=== PATIENT | male | born 1950 | race Caucasian/White ===

== ENCOUNTER 2016-06-18 05:22 | Emergency (ER) | payer OTHER ==
[~2016-06-18] VITALS: Ht 182.9 cm; Wt 75.0 kg
[2016-06-18 05:27] VITALS: Ht 182.9 cm; Wt 75.0 kg
--- NOTE | 2016-06-18 05:37 | ERA ---
ER Documentation Chief Complaint Date/Time DATE: 06/18/16 TIME: 05:36 Chief Complaint psychotic episode, violent to furniture in house, hearing voices (KENY DAMON) HPI Psychotic episode. Patient said his balance prior to his house is hearing voices telling him to hurt himself or hurt others. Patient has history of previous psychiatric disorder. (KENY DAMON) ROS All systems reviewed and are negative except as per history of present illness. (KENY DAMON) Medications Home Meds No Active Prescriptions or Reported Meds Allergies Allergies: Coded Allergies: acetaminophen (Verified Allergy, Mild, RASH,ITCHINESS, 01/16/16) hydrocodone (Verified Allergy, Mild, RASH,ITCHINESS, 01/16/16) PMhx/Soc History of Surgery: Yes (hernia repair) Anesthesia Reaction: No Hx Neurological Disorder: No Hx Respiratory Disorders: No Hx Cardiac Disorders: No Hx Psychiatric Problems: No Hx Miscellaneous Medical Probl: No Hx Alcohol Use: No Hx Substance Use: No Hx Tobacco Use: No (KENY DAMON) Physical Exam Vitals Vital Signs Date Time Temp Pulse Resp B/P Pulse Ox O2 Delivery O2 Flow Rate FiO2 06/18/16 05:27 96.9 100 20 111/69 98 (ALBINA BARRAZA DO) Physical Exam Const: [] Head: Atraumatic Eyes: Normal Conjunctiva ENT: Normal External Ears, Nose and Mouth. Neck: Full range of motion..~ No meningismus. Resp: Clear to auscultation bilaterally Cardio: Regular rate and rhythm, no murmurs Abd: Soft, non tender, non distended. Normal bowel sounds Skin: No petechiae or rashes Back: No midline or flank tenderness Ext: No cyanosis, or edema Neur: Awake and alert Psych: Normal Mood and Affect (KENY DAMON) Result Diagram: 06/18/16 0715 06/18/16 0557 Results 24 hrs Laboratory Tests Test 06/18/16 05:57 06/18/16 07:15 Acetaminophen Level < 10.0ug/ml Alanine Aminotransferase (ALT/SGPT) 43IU/L Albumin 3.8g/dl Albumin/Globulin Ratio 1.05 Alkaline Phosphatase 390IU/L Anion Gap 18 Aspartate Amino Transf (AST/SGOT) 177IU/L Basophils # 0.010^3/ul Basophils % 0.5% Blood Morphology Comment Blood Urea Nitrogen 19mg/dl Calcium Level 9.1mg/dl Carbon Dioxide Level 24mmol/L Chloride Level 103mmol/L Creatinine 0.82mg/dl Differential Comment AUTO w/SCAN Direct Bilirubin 0.00mg/dl Eosinophils # 0.010^3/ul Eosinophils % 0.5% Ethyl Alcohol Level < 10.0mg/dl Globulin 3.60g/dl Glucose Level 74mg/dl Hematocrit 20.4% 32.4% Hemoglobin 6.6g/dl 10.6g/dl Indirect Bilirubin 0.3mg/dl Lymphocytes # 2.510^3/ul Lymphocytes % 26.7% Mean Corpuscular Hemoglobin 31.4pg Mean Corpuscular Hemoglobin Concent 32.5g/dl Mean Corpuscular Volume 96.7fl Mean Platelet Volume 7.2fl Monocytes # 1.110^3/ul Monocytes % 12.4% Neutrophils # 5.510^3/ul Neutrophils % 59.9% Nucleated Red Blood Cells # 0.610^3/ul Nucleated Red Blood Cells % 6.5/100WBC Platelet Count 17188^3/UL Potassium Level 4.5mmol/L Red Blood Count 2.1110^6/ul Red Cell Distribution Width 24.0% Salicylates Level < 1.0mg/dl Sodium Level 140mmol/L Total Bilirubin 0.3mg/dl Total Protein 7.4g/dl White Blood Count 9.310^3/ul (ALBINA BARRAZA DO) Procedures/MDM Patient's behavioral symptoms have stabilized while in the department. Patient is medically cleared and appropriate for psychiatric evaluation and work up. No e/o neurologic, toxic, infectious, or metabolic cause. Pending U placement (KENY DAMON) Discussed with the patient a history. The patient says he is not hearing voices he is not homicidal is not suicidal. He says that there is a lot of chaos going on in the house and he wanted to get away from it all and he was very argumentative environment. Patient's lab work is unremarkable. He is calm and cooperative. He was seen by the tele-psych doctor. I discussed with psych and he told him the same history as me. Both feel he is not a threat to self or others and will discharged home (ALBINA BARRAZA DO) Departure Diagnosis: Primary Impression: Psychological disorder Condition: Stable KENY DAMON Jun 18, 2016 05:37 ALBINA BARRAZA DO Jun 18, 2016 08:59
[2016-06-18 06:25] LABS: BASOPHILS % 0.5 % (0.0-2.0); EOSINOPHILS % 0.5 % (0.0-7.0); HEMATOCRIT 20.4 % (42.0-52.0); LYMPHOCYTES # 2.5 10^3/ul (0.8-2.9); LYMPHOCYTES % 26.7 % (15.0-51.0); MEAN CORPUSCULAR HEMOGLOBIN 31.4 pg (29.0-33.0); MEAN CORPUSCULAR HGB CONC 32.5 g/dl (32.0-37.0); MEAN CORPUSCULAR VOLUME 96.7 fl (82.0-101.0); MEAN PLATELET VOLUME 7.2 fl (7.4-10.4); MONOCYTE # 1.1 10^3/ul (0.3-0.9); MONOCYTES % 12.4 % (0.0-11.0); NEUTROPHIL # 5.5 10^3/ul (1.6-7.5); NEUTROPHILS % 59.9 % (39.0-77.0); NUCLEATED RED BLOOD CELLS% 6.5 /100WBC (0.0-0.0); PLATELET COUNT 156 10^3/UL (140-440); RED BLOOD COUNT 2.11 10^6/ul (4.70-6.10); UNCORRECTED WBC 9.3 10^3/ul (4.8-10.8)
[2016-06-18 06:31] LABS: CONDITION 1; HEMOGLOBIN 6.6 g/dl (14.0-18.0); LH ANALYZER COMMENTS 1; NUCLEATED RED BLOOD CELLS # 0.6 10^3/ul (0.0-0.0)
[2016-06-18 06:49] LABS: ALBUMIN 3.8 g/dl (3.3-4.9); CHLORIDE 103 mmol/L (97-110)
[2016-06-18 06:50] LABS: POTASSIUM 4.5 mmol/L (3.5-5.1); SODIUM 140 mmol/L (135-144)
[2016-06-18 06:52] LABS: ALBUMIN/GLOBULIN RATIO 1.05; ANION GAP 18 (8-16); ASPARTATE AMINO TRANSFERASE 177 IU/L (15-46); BILIRUBIN,INDIRECT 0.3 mg/dl (0-1.1); BILIRUBIN,TOTAL 0.3 mg/dl (0.2-1.3); CARBON DIOXIDE 24 mmol/L (21-31); CREATININE 0.82 mg/dl (0.61-1.24); TOTAL PROTEIN 7.4 g/dl (6.1-8.1)
[2016-06-18 06:53] LABS: ALANINE AMINOTRANSFERASE 43 IU/L (13-69); ALKALINE PHOSPHATASE 390 IU/L (42-121); BLOOD UREA NITROGEN 19 mg/dl (7-20); CALCIUM 9.1 mg/dl (8.4-10.2); GLUCOSE 74 mg/dl (70-220)
[2016-06-18 06:56] LABS: ACETAMINOPHEN < 10.0 ug/ml (10.0-30.0); ETHANOL < 10.0 mg/dl; SALICYLATE < 1.0 mg/dl (5.0-30.0)
[2016-06-18 07:11] LABS: WHITE BLOOD COUNT 9.3 10^3/ul (4.8-10.8)
[2016-06-18 07:41] LABS: HEMATOCRIT 32.4 % (42.0-52.0); HEMOGLOBIN 10.6 g/dl (14.0-18.0)
[2016-06-18 09:08] VITALS: BP 135/70; PULSE 75; RESP 18; TEMP 97.9
[2016-06-18] MEDS ORDERED: CEPH-443 PO (09:11)
--- NOTE | 2016-06-18 09:28 | PSY ---
Date/Time of Note Date/Time of Note DATE: 06/18/16 TIME: 08:02 Psychiatric Subjective Eval Consent Pt consented to telemedicine: Yes Subjective Evaluation Patient location: emergency Chief Complaint: psychotic episode, violent to furniture in house, hearing voices History of present illness 66 year old male brought in by brother for psychosis.On initial presentation, brother reported that patient was hearing voices to harm himself and others and breaking furniture Patient reports he never had any of those ideas. He does admit to getting into an argument with his brother but reports he never wanted to harm him because he loves him. Denies hearing any voices. Denies depressed mood. Denies problems Denies using any drugs or alcohol. Denies any thoughts of harm to self or others. He has been cooperative with staff. No behavior issues in ED. He denies any past suicide attempts or legal issues. He denies any prior suicide attempts. Denies prior psychiatric hospitalizations. Denies any access to weapons. Past psychiatric history Denies Hospitalization: no Family History non-contributory Medical history Problems Medical Problems: (1) Cellulitis Status: Acute (2) Cellulitis of right lower extremity Status: Acute (3) Psychological disorder Status: Acute (4) Swelling of right lower extremity Status: Acute (5) Venous insufficiency (chronic) (peripheral) Status: Acute Allergies: Coded Allergies: acetaminophen (Verified Allergy, Mild, RASH,ITCHINESS, 01/16/16) hydrocodone (Verified Allergy, Mild, RASH,ITCHINESS, 01/16/16) Substance Abuse Substance use: No known substance abuse Social History Marital status: DPA/Conservatorship: No Occupation/Half-Way: on ssi Psychiatric Objective Eval Mental Status Examination: Appearance: Poor Hygiene Eye Contact: Fair Psychomotor Activity: Normal Behavior: Cooperative Speech: Pressured, Loud AFFECT: Appropriate Mood: Appropriate/Full Though Process: Circumstantial Thought Content: Normal Suicidal: No Homicidal: No On 72 hour hold: No Orientation: x3 Cognition: Alert Insight: Intact Judgement: Intact Attention Span: Intact Laboratory Results Laboratory Tests Test 06/18/16 05:57 06/18/16 07:15 Acetaminophen Level < 10.0ug/ml Alanine Aminotransferase (ALT/SGPT) 43IU/L Albumin 3.8g/dl Albumin/Globulin Ratio 1.05 Alkaline Phosphatase 390IU/L Anion Gap 18 Aspartate Amino Transf (AST/SGOT) 177IU/L Basophils # 0.010^3/ul Basophils % 0.5% Blood Morphology Comment Blood Urea Nitrogen 19mg/dl Calcium Level 9.1mg/dl Carbon Dioxide Level 24mmol/L Chloride Level 103mmol/L Creatinine 0.82mg/dl Differential Comment AUTO w/SCAN Direct Bilirubin 0.00mg/dl Eosinophils # 0.010^3/ul Eosinophils % 0.5% Ethyl Alcohol Level < 10.0mg/dl Globulin 3.60g/dl Glucose Level 74mg/dl Hematocrit 20.4% 32.4% Hemoglobin 6.6g/dl 10.6g/dl Indirect Bilirubin 0.3mg/dl Lymphocytes # 2.510^3/ul Lymphocytes % 26.7% Mean Corpuscular Hemoglobin 31.4pg Mean Corpuscular Hemoglobin Concent 32.5g/dl Mean Corpuscular Volume 96.7fl Mean Platelet Volume 7.2fl Monocytes # 1.110^3/ul Monocytes % 12.4% Neutrophils # 5.510^3/ul Neutrophils % 59.9% Nucleated Red Blood Cells # 0.610^3/ul Nucleated Red Blood Cells % 6.5/100WBC Platelet Count 57373^3/UL Potassium Level 4.5mmol/L Red Blood Count 2.1110^6/ul Red Cell Distribution Width 24.0% Salicylates Level < 1.0mg/dl Sodium Level 140mmol/L Total Bilirubin 0.3mg/dl Total Protein 7.4g/dl White Blood Count 9.310^3/ul Assessment and Plan Assessment/Diagnosis [place] I: F39 Mood disorder NOS [place] II: deferred [place] III: cellulitis [place] IV: housing, social support [place] V: 50 Recommendation/Plan Follow-up/Disposition Patient is not at high risk for imminent danger to self or others. No active SI/ HI intent or plan. He is future oriented, looking forward to planned medical appointments. No indication for inpatient level of care at this time. -F/u with PCP within 3-5 days of discharge. PETRA FREY MD Jun 18, 2016 09:28
== END 2016-06-18 09:15 | disposition home or self-care (01) ==
LOC: E/R 05:22
DX: F29 Unspecified psychosis not due to a substance or known physiological condition (principal)
CPT/HCPCS: 36415; 80053; 80306; 85014; 85018; 85025; Z7502; 99283

== ENCOUNTER 2017-03-24 10:37 | Day surgery (SDC) | payer OTHER ==
[~2017-03-24] VITALS: Ht 180.3 cm; Wt 76.7 kg
[~2017-03-24 10:37] MED LIST: CEPH-443 PO
[2017-03-24 11:29] VITALS: Ht 180.3 cm; Wt 76.7 kg
[2017-03-24] MEDS ORDERED: FLOMAX PO (11:42)
[2017-03-24] MEDS ORDERED: MIDAZOLAM 1 MG/ML 2 ML INJ ONE (12:05)
[2017-03-24] MEDS ORDERED: PROPOFOL 20 ML ONE (12:05)
[2017-03-24] MEDS ORDERED: FLUMAZENIL 0.5 MG INJ ONE (13:33)
--- NOTE | 2017-03-24 13:41 | OPPN ---
Date/Time of Note Date/Time of Note DATE: 03/24/17 TIME: 13:40 Operative Report Preoperative Diagnosis Screening colonoscopy Postoperative Diagnosis Poor prep Redundant colon Partial colonoscopy Internal hemorrhoids Operation/Procedure Performed Colonoscopy Surgeon see signature line first assist None Anesthesia: MAC Estimated blood loss: none Transfusion Required none Specimen None Grafts/Implants none Complications none SRIDEVI BRIONES MD Mar 24, 2017 13:41
--- NOTE | 2017-03-24 13:41 | OPPN ---
Date/Time of Note Date/Time of Note DATE: 03/24/17 TIME: 13:40 Operative Report Preoperative Diagnosis Screening colonoscopy Postoperative Diagnosis Poor prep Redundant colon Partial colonoscopy Internal hemorrhoids Operation/Procedure Performed Colonoscopy Surgeon see signature line patent legal assistant None Anesthesia: MAC Estimated blood loss: none Transfusion Required none Specimen None Grafts/Implants none Complications none SRIDEVI BRIONES MD Mar 24, 2017 13:41
--- NOTE | 2017-03-24 13:41 | OPPN ---
Date/Time of Note Date/Time of Note DATE: 03/24/17 TIME: 13:40 Operative Report Preoperative Diagnosis Screening colonoscopy Postoperative Diagnosis Poor prep Redundant colon Partial colonoscopy Internal hemorrhoids Operation/Procedure Performed Colonoscopy Surgeon see signature line assistant health educator None Anesthesia: MAC Estimated blood loss: none Transfusion Required none Specimen None Grafts/Implants none Complications none SRIDEVI BRIONES MD Mar 24, 2017 13:41
[2017-03-24 14:29] VITALS: BP 104/73; PULSE 72; RESP 18
--- NOTE | 2017-03-25 02:21 | GILP ---
DATE OF PROCEDURE: NAME OF PROCEDURE: Colonoscopy. SURGEON: Dr. Sridevi Seo PREOPERATIVE DIAGNOSIS: Screening colonoscopy. POSTOPERATIVE DIAGNOSES: 1. Poor prep making the exam very suboptimal. 2. Redundant colon and cecum could not be reached. 3. Internal hemorrhoids. INDICATION FOR THE PROCEDURE: Mr. Justo Yadav is a 67-year-old male patient was noted to have el evated CEA level. Patient needed screening colonoscopy. The procedure and possible complications were well explained to the patient, the patient understood and consented to the procedure. DESCRIPTION OF PROCEDURE: Under the influence of anesthesia, the colonoscope was carefully introduc ed in the rectum and it was advanced to the whole length of the scope. FINDINGS: The patient had poor prep making the exam very suboptimal. He had a redundant colon and the cecum could not be reached. He was noted to have internal hemorrhoids. The patient tolerated the procedure very well and there was no complication from the procedure. At the end of the procedure, he was awake with stable vital signs and he was discharged home to the care of his family. IMPRESSION: 1. Poor prep making the exam very suboptimal. 2. Redundant colon and cecum could not be reached. 3. Internal hemorrhoids. PLAN: Barium enema for the evaluation of the proximal part of the colon. The prescription was given to the patient and authorization has been requested from the insurance co [employer]. Dictated By: SRIDEVI LAYNE/LILIAN Conf#: [id number] DID#: [id number]
--- NOTE | 2017-03-25 02:21 | GILP ---
DATE OF PROCEDURE: NAME OF PROCEDURE: Colonoscopy. SURGEON: Dr. Sridevi Seo PREOPERATIVE DIAGNOSIS: Screening colonoscopy. POSTOPERATIVE DIAGNOSES: 1. Poor prep making the exam very suboptimal. 2. Redundant colon and cecum could not be reached. 3. Internal hemorrhoids. INDICATION FOR THE PROCEDURE: Mr. Justo Yadav is a 67-year-old male patient was noted to have el evated CEA level. Patient needed screening colonoscopy. The procedure and possible complications were well explained to the patient, the patient understood and consented to the procedure. DESCRIPTION OF PROCEDURE: Under the influence of anesthesia, the colonoscope was carefully introduc ed in the rectum and it was advanced to the whole length of the scope. FINDINGS: The patient had poor prep making the exam very suboptimal. He had a redundant colon and the cecum could not be reached. He was noted to have internal hemorrhoids. The patient tolerated the procedure very well and there was no complication from the procedure. At the end of the procedure, he was awake with stable vital signs and he was discharged home to the care of his family. IMPRESSION: 1. Poor prep making the exam very suboptimal. 2. Redundant colon and cecum could not be reached. 3. Internal hemorrhoids. PLAN: Barium enema for the evaluation of the proximal part of the colon. The prescription was given to the patient and authorization has been requested from the insurance co [id number] Dictated By: SRIDEVI LAYNE/LILIAN Conf#: [id number] DID#: [id number]
== END 2017-03-24 14:55 | disposition home or self-care (01) ==
LOC: GIL 10:37
PROVIDERS: ATTEND Internal Medicine Gastroenterology
DX: Z12.11 Encounter for screening for malignant neoplasm of colon (principal); K64.8 Other hemorrhoids
CPT/HCPCS: 45378; J2250; Z7610

== ENCOUNTER 2018-01-14 21:22 | Emergency (ER) | END 2018-01-15 08:06 | disposition home or self-care (01) ==